=== PATIENT | male | born 1965 | race African-American/Black ===

== ENCOUNTER 2017-09-26 09:35 | Outpatient (CLI) | payer MEDICARE, MEDICAID ==
--- NOTE | 2017-09-26 11:43 | ULT ---
BILATERAL INGUINAL ULTRASOUND: Date: 09-26-17 Comparison: None. History: Right groin pain. Technique: Multiplanar grayscale sonographic imaging of bilateral inguinal regions obtained. FINDINGS: There are multiple mildly prominent non-enlarged nodes identified in the inguinal regions bilaterally . No sonographic evidence of mass or fluid collection or hernia formation noted in the inguinal regio ns. If symptoms persist, CT advised. IMPRESSION: Mild ravinder prominence in bilateral inguinal regions. No acute findings. Please see above discussion. POS: [facility]
== END 2017-09-26 09:36 | disposition home or self-care (01) ==
LOC: ULT 09:35
PROVIDERS: ATTEND Nurse Practitioner Family
DX: R10.31 Right lower quadrant pain (principal)
CPT/HCPCS: 76999

== ENCOUNTER 2018-05-08 12:09 | Outpatient (CLI) | payer MEDICARE, MEDICAID ==
[~2018-05-08 12:09] MED LIST: Iopamidol 370 76% 100 ML VIAL ONE
--- NOTE | 2018-05-08 14:06 | CT ---
ABDOMEN CT WITH CONTRAST: PELVIS CT WITH CONTRAST: HISTORY: Loose bowel movements for a month. Weight loss. Abdominal pain. COMPARISON: None. TECHNIQUE: Abdomen and pelvis CT are performed with IV and enteric contrast. Coronal reformatted images are sub mitted for interpretation. FINDINGS: ABDOMEN: The lung bases are clear. The descending thoracic aorta and abdominal aorta have a normal caliber. No periaortic fat stranding. Unremarkable gallbladder. Portal vein is patent. There is enhancement of the hepatic parenchyma, near the hepatic dome, which is incompletely evaluate d. Flash filling hemangioma, measuring 2 cm, is favored. The remainder of the hepatic parenchyma is unremarkable. The spleen and adrenal glands are unremarkable. There is mild prominence of the panc reatic duct, at the head and proximal to mid portion of the pancreatic body. The duct measures appro ximately 3 mm and is at upper limits of normal. Symmetric enhancement of the kidneys. There is a partially hyperdense lesion emanating from the uppe r pole of the right kidney, measuring 2.2 x 2.5 cm. Intrinsic hyperdensity versus enhancement are di fferential consolidations. The possibility of a right renal neoplasm cannot be excluded. Bilaterall y, no obstructive uropathy. No gastrohepatic, retrocrural, or periportal lymphadenopathy. No mesenteric mass, lymphadenopathy, free air, or free fluid. The gastric mucosa, the duodenum, and multiple normal caliber small bowel loops are noted. The ileoc ecal junction is normal. Normal caliber appendix. Scattered fecal material in a nondistended, nondi lated colon. Occasional diverticulum. No diverticulitis. PELVIS: No mass, lymphadenopathy, free air, or free fluid. No lytic or blastic lesions in the osseo us structures. IMPRESSION: 1. No acute abnormality of the abdomen and pelvis. 2. Complex lesion emanating from the upper pole of the right kidney with hyperdensity, which may rep resent areas of enhancement. Pre and post contrast abdomen MRI is recommended for better characteriz ation to confirm suspected neoplasm. The results of the study were discussed with Dr. Stoddard on 05/08/2018 at 1:59 p.m. CODE CR POS: [facility]
[2018-05-08 14:16] LABS: Bilirubin Negative (Negative); Blood, Urine Negative (Negative); Clarity CLEAR (Clear); Glucose, Urine (Dipstick) Negative (Negative); Hemoglobin 13.2 g/dL (14.0-18.0); Leukocyte Negative (Negative); Mean Corpuscular HGB CONC 34.2 g/dL (32.0-36.0); Mean Corpuscular Hemoglobin 30.1 pg (27.0-31.0); Mean Corpuscular Volume 87.9 fL (78.0-98.0); Mean Platelet Volume 7.9 fL (7.4-10.4); Nitrite Negative (Negative); Platelet Count 253 thou/uL (130-400); Protein, Urine (Dipstick) Negative (Neg-Trace); RBC Distribution Width 12.7 % (11.5-14.5); Red Blood Cell (RBC) Count 4.37 mill/uL (4.70-6.10); Specific Gravity, Urine 1.043 (1.002-1.036); White Blood Cell (WBC) Count 5.1 thou/uL (4.8-10.8)
[2018-05-08 14:18] LABS: Bacteria/HPF None Seen HPF (None Seen); Hyaline Casts/LPF 0-3 HYALINE CAST LPF (0-3 Hyaline); RBC/HPF None Seen HPF (0-3); Squamous Epithelial None Seen HPF (0-3); WBC/HPF None Seen HPF (0-3)
[2018-05-08 14:28] LABS: ALT (SGPT) 11 U/L (8-55); AST (SGOT) 15 U/L (5-34); Albumin 4.1 g/dL (3.5-5.0); Alkaline Phosphatase 85 U/L (40-150); Anion Gap 11 mmol/L (10-20); BUN (Urea Nitrogen) 11 mg/dL (8.4-25.7); Bilirubin, Total 0.6 mg/dL (0.2-1.2); Calc. Creatinine Clearance 0 mL/min (70-130); Calcium 8.7 mg/dL (7.8-10.44); Carbon Dioxide 23 mmol/L (22-29); Chloride 106 mmol/L (98-107); Estimated GFR-MDRD Greater than 90; Globulin 2.9 g/dL (2.4-3.5); Glucose 77 mg/dL (70-105); Potassium 4.1 mmol/L (3.5-5.1); Sodium 136 mmol/L (136-145)
[2018-05-08 14:36] LABS: Eosinophils 1 % (0-10); Lymphocytes 32 % (21-51); MDiff Complete? YES; Monocytes 7 % (0-10); Neutrophil 60 % (42-75); PLT Morphology Comment Appears Adequate; Target Cells SLIGHT = 2-5 cells (100X) (0-1/hpf)
== END 2018-05-08 12:10 | disposition home or self-care (01) ==
LOC: CT 12:09
PROVIDERS: ATTEND Internal Medicine Infectious Disease
DX: R10.9 Unspecified abdominal pain (principal); N28.9 Disorder of kidney and ureter, unspecified
CPT/HCPCS: 36415; 74177; 80053; 81001; 85025; 87086

== ENCOUNTER 2018-05-19 08:52 | Outpatient (CLI) | payer MEDICARE, MEDICAID ==
[2018-05-19] MEDS ORDERED: Gadobenate Dimeglumine 529 MG/1 ML (20ML VIAL) ONE (12:30)
--- NOTE | 2018-05-19 13:43 | MRI ---
MRI ABDOMEN WITH AND WITHOUT IV CONTRAST: History: Right renal mass. FINDINGS: Correlation is made with the CT scan of 05-08-18. The liver, spleen, pancreas, adrenal glands, and left kidney appear normal. The 2.5 cm right renal ma ss seen on the CT scan has a complex appearance with some areas of post contrast enhancement. No free fluid or lymphadenopathy is seen. There is no evidence of aneurysmal dilatation of the abdomi nal aorta. Bone marrow signal is normal. IMPRESSION: 2.5 cm right renal mass, suspicious for malignancy. POS: [facility]
== END 2018-05-19 08:53 | disposition home or self-care (01) ==
LOC: BICMRI 08:52
PROVIDERS: ATTEND Internal Medicine Infectious Disease
DX: N28.89 Other specified disorders of kidney and ureter (principal)
CPT/HCPCS: 74183; A9579

== ENCOUNTER 2018-09-04 09:22 | Outpatient (CLI) | payer MEDICARE, MEDICAID ==
--- NOTE | 2018-09-04 13:23 | CT ---
EXAM: CT abdomen with and without contrast HISTORY: Renal mass COMPARISON: MRI 05/19/18 FINDINGS: Lung bases are clear. No pericardial effusion. On the noncontrast examination, there is no nephroureterolithiasis or hydroureteral nephrosis. No se condary evidence of a recently passed stone. There is a mass of the anterior cortex interpolar right kidney measuring up to 2.6 cm, similar to the comparison examination. 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 The upper pole moiety does not have contrast within th e proximal ureter by the 4 minute delayed examination. No other enhancing mass is appreciated. No periaortic retroperitoneal adenopathy. No suspicious osteolytic or osteoblastic lesions. The right renal vein is patent. Mild thickening of the left adrenal gland is similar. The aortic contour is nonaneurysmal. Intramedullary lucency of the left iliac wing is similar to the comparison examination, peripheral scar-like rafael, likely a focal bone cyst. IMPRESSION: 1. Unchanged interpolar anterior cortex 50% exophytic right renal mass suggestive of renal cell carc inoma. There has been interval growth compared to the MRI dating back to 2013. The right renal vein is patent. No periaortic retroperitoneal adenopathy. 2. 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 POS: [facility]
== END 2018-09-04 09:23 | disposition home or self-care (01) ==
LOC: SCSCT 09:22
PROVIDERS: ATTEND Urology
DX: N29 Other disorders of kidney and ureter in diseases classified elsewhere (principal)
CPT/HCPCS: 74170

== ENCOUNTER 2018-12-14 20:08 | Emergency (ER) | payer MEDICARE, MEDICAID ==
[~2018-12-14 20:08] MED LIST changes: +ISOVUE-370 76%-LOCM 1 ML ONE; -Iopamidol 370 76% 100 ML VIAL ONE
[2018-12-14] MEDS ORDERED: Fentanyl 100 MCG/2 ML VIAL ONE (20:30)
[2018-12-14 20:32] LABS: #Basophils 0.1 thou/uL (0.0-0.2); #Lymphocytes 4.7 thou/uL (1.20-3.40); #Monocytes 0.6 thou/uL (0.11-0.59); %Basophils 1.2 % (0.0-1.0); %Eosinophils 0.5 % (0.0-10.0); %Lymphocytes 49.8 % (21.0-51.0); %Monocytes 6.2 % (0.0-10.0); %Neutrophils 42.3 % (42.0-75.0); Mean Corpuscular HGB CONC 35.2 g/dL (32.0-36.0); Mean Corpuscular Hemoglobin 30.1 pg (27.0-31.0); Mean Corpuscular Volume 85.5 fL (78.0-98.0); Mean Platelet Volume 8.1 fL (7.4-10.4); Platelet Count 231 thou/uL (130-400); Red Blood Cell (RBC) Count 4.34 mill/uL (4.70-6.10); White Blood Cell (WBC) Count 9.4 thou/uL (4.8-10.8)
--- NOTE | 2018-12-14 20:48 | RAD ---
AP VIEW CHEST: 12/14/18 HISTORY: Chest pain. AP view chest is obtained on 12/14/18. The lungs are well aerated. No evidence of active intrathoracic disease seen. No evidence of effusion s, pneumonia, or pneumothorax seen. Multiple calcified hilar lymph nodes seen. IMPRESSION: No evidence of acute intrathoracic abnormality seen. POS: [facility]
[2018-12-14 20:56] LABS: ALT (SGPT) 11 U/L (8-55); AST (SGOT) 15 U/L (5-34); Albumin 4.2 g/dL (3.5-5.0); Alkaline Phosphatase 90 U/L (40-150); Anion Gap 13 mmol/L (10-20); BUN (Urea Nitrogen) 14 mg/dL (8.4-25.7); Bilirubin, Total 0.4 mg/dL (0.2-1.2); CK (CPK) 189 U/L (30-200); Calc. Creatinine Clearance 0 mL/min (70-130); Calcium 9.1 mg/dL (7.8-10.44); Carbon Dioxide 22 mmol/L (22-29); Chloride 102 mmol/L (98-107); Estimated GFR-MDRD 83; Globulin 2.9 g/dL (2.4-3.5); Glucose 89 mg/dL (70-105); Potassium 3.7 mmol/L (3.5-5.1); Protein, Total 7.1 g/dL (6.0-8.3); Sodium 133 mmol/L (136-145)
[2018-12-14 21:37] LABS: Bilirubin Negative (Negative); Blood, Urine Negative (Negative); Clarity CLEAR (Clear); Glucose, Urine (Dipstick) Negative (Negative); Leukocyte Negative (Negative); Nitrite Negative (Negative); Protein, Urine (Dipstick) Negative (Neg-Trace); Specific Gravity, Urine 1.039 (1.002-1.036)
[2018-12-14] MEDS ORDERED: Aspirin Chewable 81 MG TAB ONE (21:38)
[2018-12-14] MEDS ORDERED: Metoclopramide HCl 10 MG/2 ML VIAL ONE (21:42)
[2018-12-14] MEDS ORDERED: diphenhydrAMINE 50 MG/ML VIAL ONE (21:42)
--- NOTE | 2018-12-14 21:58 | CT ---
CONTRAST ENHANCED CTA AORTA 12/14/18 HISTORY: Back pain radiating to right. Contrast enhanced CTA chest and abdomen performed. 2D and 3D reconstructed images performed on an [id number] 3D workstation. CTA images demonstrate the aortic arch and descending aorta to be unremarkable. The abdominal aorta is unremarkable. Mild areas of atherosclerotic plaque seen. No evidence of aortic dissection seen. AP window and bilateral hilar areas of lymph node calcification seen. Coronary artery calcification seen in the LAD. No definite evidence of lung parenchymal lesions seen . The liver, spleen, gallbladder, and pancreas are unremarkable. No evidence of abdominal aortic aneury sm seen. Cortical cyst seen in the mid pole of the right kidney. IMPRESSION: 1. No evidence of aortic aneurysms or dissections. 2. Coronary artery calcifications. 3. Small umbilical hernia. POS: [facility]
[2018-12-14] MEDS ORDERED: Acetaminophen 500 MG TAB ONE (23:26)
== END 2018-12-14 23:37 | disposition home or self-care (01) ==
LOC: ERS 20:08
DX: S39.012A Strain of muscle, fascia and tendon of lower back, initial encounter (principal); B20 Human immunodeficiency virus [HIV] disease; I10 Essential (primary) hypertension; F17.210 Nicotine dependence, cigarettes, uncomplicated; X58.XXXA Exposure to other specified factors, initial encounter
CPT/HCPCS: 36415; 71045; 71275; 80053; 81003; 82550; 83605; 83690; 84484; 85025; 86850; 86900; 86901; 93005; 94760; 96365; 96366; 96375; J1200; J2765; J3010; Q9966

== ENCOUNTER 2019-06-02 08:36 | Outpatient (CLI) | payer MEDICARE, MEDICAID ==
--- NOTE | 2019-06-02 09:47 | CT ---
Exam: Abdomen CT with and without contrast HISTORY: Follow-up right renal mass. COMPARISON: 09/04/2018 TECHNIQUE: Abdomen and pelvic CT is performed with and without contrast following urogram protocol. C oronal reformatted images are submitted for interpretation FINDINGS: Lung bases: Multiple scar/atelectasis Liver: Appropriate enhancement. No enhancing masses. Spleen: Appropriate enhancement Pancreas: Appropriate enhancement Adrenal glands: Symmetric enhancement Lymph nodes: No gastrohepatic, retrocrural or periportal lymphadenopathy Portal vein: Grossly patent Gallbladder: Unremarkable Kidneys: Bilaterally no hydronephrosis, nephrolithiasis or perinephric fat stranding. Visualized uret ers are unremarkable. Redemonstration of a exophytic lesion emanating from the mid right renal cortex noncontrast attenuation coefficient of 31 Hounsfield units, arterial phase attenuation coeffic ient 67 Hounsfield units, delayed imaging demonstrates a attenuation coefficient of 52 Hounsfield units. Currently, the mass measures 1.6 x 2.3 cm. Previously, the mass measured 1.9 x 2.3 cm. 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 Right renal vein is patent. Mesentery: No mass, nephropathy, free air or free fluid Retroperitoneum: No significant retroperitoneal mass or lymphadenopathy. Alimentary canal: Limited evaluation due to lack of oral contrast administration. No evidence of isma l obstruction. The ileocecal junction is normal. Normal caliber appendix. Scattered fecal material in a nondistended/nondilated colon. No lytic or blastic lesions in the osseous structures IMPRESSION: 1. Redemonstration of an enhancing mass in the right renal cortex which has an enhancement pattern naidu ggesting a renal cell carcinoma. No significant interval change. 2. 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 Persistent lack of contrast opacification in the upper pole moiety and visualized right ureter.
[2019-06-02] MEDS ORDERED: Iopamidol 370 76% 100 ML VIAL ONE (10:01)
== END 2019-06-02 08:37 | disposition home or self-care (01) ==
LOC: CT 08:36
PROVIDERS: ATTEND Urology
DX: N28.89 Other specified disorders of kidney and ureter (principal); Q62.8 Other congenital malformations of ureter
CPT/HCPCS: 74170; Q9967

== ENCOUNTER 2019-07-01 13:24 | Outpatient (CLI) | payer MEDICARE, OTHER ==
--- NOTE | 2019-07-01 13:39 | RAD ---
EXAM: Chest 2 views: HISTORY: Cough COMPARISON: 12/14/2018 FINDINGS: Stable old granulomatous disease. Heart size:Within normal limits. Lungs:Clear of acute process. Atherosclerotic changes of the aorta. No confluent pneumonia, overt edema, pleural effusion, pneumothorax, or other significant acute proce ss. IMPRESSION: Atherosclerosis of the aorta. No acute intrathoracic disease.
== END 2019-07-01 13:25 | disposition home or self-care (01) ==
LOC: BICRAD 13:24
PROVIDERS: ATTEND Family Medicine
DX: R05 Cough (principal); I70.0 Atherosclerosis of aorta
CPT/HCPCS: 71046

== ENCOUNTER 2019-07-26 21:24 | Emergency (ER) | payer MEDICARE, MEDICAID ==
--- NOTE | 2019-07-26 22:13 | RAD ---
RADIOGRAPH CHEST 2 VIEWS: DATE: 07/26/2019 HISTORY: 54-year-old male with cough and fever FINDINGS: There is no airspace density, pulmonary edema, pleural effusion, pneumothorax, or cardiomegaly. IMPRESSION: No acute cardiopulmonary findings.
[2019-07-26] MEDS ORDERED: Acetaminophen 500 MG TAB ONE (22:47)
== END 2019-07-26 22:50 | disposition home or self-care (01) ==
LOC: ERS 21:24
DX: J20.9 Acute bronchitis, unspecified (principal); B20 Human immunodeficiency virus [HIV] disease; I10 Essential (primary) hypertension; F17.290 Nicotine dependence, other tobacco product, uncomplicated
CPT/HCPCS: 71046; 87804

== ENCOUNTER 2019-11-19 08:41 | Outpatient (CLI) | payer MEDICARE, MEDICAID ==
--- NOTE | 2019-11-19 10:47 | CT ---
CT ABDOMEN WITH AND WITHOUT CONTRAST: Axial tomograms were obtained pre- and post-IV contrast. Postcontrast images were obtained with port al venous and delayed venous phase. Renal mass protocol was followed. INDICATION: Followup right renal mass. COMPARISON: Comparison is made to abdominal CT 06/02/2019. FINDINGS: The 2 cm mass involving the mid right kidney is again noted. This mass does show enhancement charact eristics. It is isodense on noncontrast images with density at 38 Hounsfield units. Postcontrast de nsity recorded at 56 and 68 on portal venous and delayed venous phases. The size and appearance of t his mass has not changed when compared to 06/02/2019. Lung bases remain clear. Tiny nodule in the anterior right middle lobe measuring in the 3 mm range i s stable. Liver, spleen, and pancreas unremarkable. Left adrenal gland is mildly prominent, especially the medial limb, suggesting mild hyperplasia. Thi s is a stable finding. A double collecting system on the right is again noted with opacification of both collecting systems on the delayed sequence. Both ureters are opacified and are seen extending to the pelvis. Images of the pelvis were not obtained on this study and lower ureters are not evaluated. The left kidney is unremarkable. Aorta shows atherosclerotic change. Visualized bowel loops unremarkable. Osseous structures are unr emarkable. IMPRESSION: 1. The enhancing mass in the mid pole right kidney is unchanged in size and appearance when compared to 06/02/2019. 2. Right double collecting system again noted without hydronephrosis or obstruction. 3. Prominence of the medial limb of the left adrenal gland could represent small adenoma or mild hyp erplasia. This is a stable finding. POS: [facility]
[2019-11-19] MEDS ORDERED: Iopamidol-370 76% 500 ML 1 ML ONE (13:39)
== END 2019-11-19 08:42 | disposition home or self-care (01) ==
LOC: BICCT 08:41
PROVIDERS: ATTEND Urology
DX: N28.89 Other specified disorders of kidney and ureter (principal); Q62.8 Other congenital malformations of ureter
CPT/HCPCS: 74170; Q9967

== ENCOUNTER 2023-03-25 08:14 | Emergency (ER) | payer OTHER, MEDICARE, MEDICAID ==
[2023-03-25] MEDS ORDERED: Ketorolac Tromethamine 30 MG/ML VIAL ONE (09:10)
== END 2023-03-25 10:30 | disposition home or self-care (01) ==
LOC: ERS 08:14
DX: S16.1XXA Strain of muscle, fascia and tendon at neck level, initial encounter (principal); S39.012A Strain of muscle, fascia and tendon of lower back, initial encounter; S80.812A Abrasion, left lower leg, initial encounter; F17.290 Nicotine dependence, other tobacco product, uncomplicated; V89.2XXA Person injured in unspecified motor-vehicle accident, traffic, initial encounter
CPT/HCPCS: 72072; 72100; 72125; 96372; J1885

== ENCOUNTER 2023-04-13 12:43 | Inpatient (IN) | payer OTHER, MEDICARE ==
[2023-04-13] MEDS ORDERED: Ondansetron PF 4 MG/2 ML Vial ONE (13:42)
[2023-04-13] MEDS ORDERED: Morphine 4 MG/ML VIAL ONE ×2 (13:42→17:05)
[2023-04-13] MEDS ORDERED: Vancomycin 1.5 GRAM/300 ML BAG 1.5 GM in Premix Bag 1 BAG IVPB SCH (14:00)
[2023-04-13] MEDS ORDERED: Piperacillin/Tazobactam 4.5 GM in Sodium Chloride 0.9% 100 ML IVPB SCH (14:00)
[2023-04-13 14:04] LABS: #Eosinphils 0.1 thou/uL (0.0-0.7); #Monocytes 0.4 thou/uL (0.11-0.59); #Neutrophils 2.2 thou/uL (1.40-6.50); %Basophils 0.6 % (0.0-1.0); %Eosinophils 2.4 % (0.0-10.0); %Lymphocytes 50.1 % (21.0-51.0); %Neutrophils 39.7 % (42.0-75.0); Hematocrit 37.4 % (42.0-52.0); Hemoglobin 13.1 g/dL (14.0-18.0); Mean Corpuscular Hemoglobin 29.4 pg (27.0-31.0); Mean Corpuscular Volume 83.9 fl (78.0-98.0); Mean Platelet Volume 10.2 fL (7.4-10.4); Platelet Count 356 10x3/uL (130-400); RBC Distribution Width 12.5 % (11.5-14.5); Red Blood Cell (RBC) Count 4.46 mill/uL (4.70-6.10); White Blood Cell (WBC) Count 5.5 10x3/uL (4.8-10.8)
[2023-04-13] MEDS ORDERED: Piperacillin/Tazobactam 4.5 GM VIAL ONE (14:16)
[2023-04-13 14:30] LABS: ALT (SGPT) 7 U/L (8-55); AST (SGOT) 10 U/L (5-34); Alkaline Phosphatase 81 U/L (40-110); Anion Gap 14 mmol/L (10-20); BUN (Urea Nitrogen) 17 mg/dL (8.4-25.7); Bilirubin, Total 0.4 mg/dL (0.2-1.2); Calc. Creatinine Clearance 0 mL/min (70-130); Calcium 9.8 mg/dL (7.8-10.44); Carbon Dioxide 24 mmol/L (22-29); Chloride 107 mmol/L (98-107); Estimated GFR 100; Globulin 3.4 g/dL (2.4-3.5); Glucose 64 mg/dL (70-105); Potassium 4.1 mmol/L (3.5-5.1); Protein, Total 7.4 g/dL (6.0-8.3); Sodium 141 mmol/L (136-145)
[2023-04-13] MEDS ORDERED: Ondansetron PF 4 MG/2 ML Vial IVP PRN (16:25)
[2023-04-13] MEDS ORDERED: Ondansetron ODT 4 MG TAB PO PRN (16:25)
[2023-04-13] MEDS ORDERED: Acetaminophen 325 MG TAB PO PRN (16:25)
[2023-04-13] MEDS: Piperacillin/Tazobactam 3.375 GM in Sodium Chloride 0.9% 100 ML IVPB SCH (18:23)
[2023-04-13 19:43] VITALS: BMI 23.6
[2023-04-13] MEDS: Famotidine 20 MG TAB PO SCH (20:14)
[2023-04-13] MEDS: Morphine 4 MG/ML VIAL SLOW IVP PRN (21:18)
[2023-04-13] MEDS ORDERED: diphenhydrAMINE 25 MG CAP PO SCH (23:30)
[2023-04-14] MEDS: Piperacillin/Tazobactam 3.375 GM in Sodium Chloride 0.9% 100 ML IVPB SCH ×3 (01:38→18:29)
[2023-04-14] MEDS: Vancomycin 1 GM in Premix Bag 1 BAG IVPB SCH ×2 (03:25→14:31)
[2023-04-14] MEDS: Morphine 4 MG/ML VIAL SLOW IVP PRN ×4 (03:42→23:41)
[2023-04-14 04:23] LABS: Bacteria/HPF None Seen HPF (None Seen); Bilirubin Negative (Negative); Blood, Urine Negative (Negative); Clarity Clear (Clear); Glucose, Urine (Dipstick) Normal (Negative); Ketone, Urine Negative (Negative); Leukocyte Negative Leu/uL (Negative); Nitrite Negative (Negative); Protein, Urine (Dipstick) Negative (Neg-Trace); RBC/HPF 0-3 HPF (0-3); Specific Gravity, Urine 1.023 (1.002-1.036); Squamous Epithelial 0-3 HPF (0-3); Urobilinogen Normal mg/dL (Less than 2); WBC/HPF 0-3 HPF (0-3)
[2023-04-14] MEDS: HYDROcodone/Acetaminophen 5/325 mg Tablet PO PRN ×4 (05:06→20:57)
[2023-04-14 08:17] LABS: #Eosinphils 0.2 thou/uL (0.0-0.7); #Monocytes 0.4 thou/uL (0.11-0.59); #Neutrophils 1.5 thou/uL (1.40-6.50); %Basophils 0.6 % (0.0-1.0); %Eosinophils 3.5 % (0.0-10.0); %Lymphocytes 58.1 % (21.0-51.0); %Monocytes 7.4 % (0.0-10.0); Hematocrit 31.7 % (42.0-52.0); Hemoglobin 10.9 g/dL (14.0-18.0); Mean Corpuscular HGB CONC 34.4 g/dL (32.0-36.0); Mean Corpuscular Hemoglobin 29.1 pg (27.0-31.0); Mean Corpuscular Volume 84.8 fl (78.0-98.0); Mean Platelet Volume 9.9 fL (7.4-10.4); Platelet Count 304 10x3/uL (130-400); RBC Distribution Width 12.6 % (11.5-14.5); Red Blood Cell (RBC) Count 3.74 mill/uL (4.70-6.10); White Blood Cell (WBC) Count 4.8 10x3/uL (4.8-10.8)
[2023-04-14 08:29] LABS: Anion Gap 5 mmol/L (10-20); BUN (Urea Nitrogen) 11 mg/dL (8.4-25.7); Calc. Creatinine Clearance 104 mL/min (70-130); Calcium 8.5 mg/dL (7.8-10.44); Carbon Dioxide 23 mmol/L (22-29); Chloride 109 mmol/L (98-107); Estimated GFR 102; Glucose 80 mg/dL (70-105); Sodium 133 mmol/L (136-145)
[2023-04-14] MEDS ORDERED: Darunavir/Cobicistat [Prezcobix 800 Mg-150 Mg Tablet] PO SCH (09:00)
[2023-04-14] MEDS: Famotidine 20 MG TAB PO SCH ×2 (09:44→20:57)
[2023-04-14] MEDS ORDERED: Ketamine 50 MG/ML (10ML VIAL) ONE (11:02)
[2023-04-14] MEDS ORDERED: Midazolam HCl 2 mg/2 ml Vial ONE (11:02)
[2023-04-14] MEDS ORDERED: Lidocaine 1% (PF) 30 ML VIAL ONE (11:03)
[2023-04-14] MEDS ORDERED: Magnevist 469MG/ML 20 ML VIAL ONE (12:16)
[2023-04-14] MEDS ORDERED: Vancomycin 1 GM in Premix Bag 1 BAG IVPB SCH (14:00)
[2023-04-15] MEDS: HYDROcodone/Acetaminophen 5/325 mg Tablet PO PRN ×5 (02:36→21:01)
[2023-04-15] MEDS: Piperacillin/Tazobactam 3.375 GM in Sodium Chloride 0.9% 100 ML IVPB SCH ×3 (02:36→18:15)
[2023-04-15 02:58] LABS: Vancomycin, Trough 6.7 ug/mL
[2023-04-15] MEDS: Vancomycin 1 GM in Premix Bag 1 BAG IVPB SCH ×4 (03:17→21:03)
[2023-04-15] MEDS: Morphine 4 MG/ML VIAL SLOW IVP PRN ×5 (05:05→23:45)
[2023-04-15 07:41] LABS: #Eosinphils 0.2 thou/uL (0.0-0.7); #Monocytes 0.6 thou/uL (0.11-0.59); #Neutrophils 4.6 thou/uL (1.40-6.50); %Basophils 0.4 % (0.0-1.0); %Eosinophils 2.4 % (0.0-10.0); %Lymphocytes 29.6 % (21.0-51.0); %Monocytes 7.4 % (0.0-10.0); %Neutrophils 59.9 % (42.0-75.0); Hematocrit 29.5 % (42.0-52.0); Hemoglobin 10.6 g/dL (14.0-18.0); Mean Corpuscular HGB CONC 35.9 g/dL (32.0-36.0); Mean Corpuscular Hemoglobin 29.7 pg (27.0-31.0); Mean Corpuscular Volume 82.6 fl (78.0-98.0); Mean Platelet Volume 10.1 fL (7.4-10.4); Platelet Count 273 10x3/uL (130-400); RBC Distribution Width 12.3 % (11.5-14.5); Red Blood Cell (RBC) Count 3.57 mill/uL (4.70-6.10); White Blood Cell (WBC) Count 7.6 10x3/uL (4.8-10.8)
[2023-04-15] MEDS: Famotidine 20 MG TAB PO SCH ×2 (07:45→21:01)
[2023-04-15 08:02] LABS: Anion Gap 5 mmol/L (10-20); BUN (Urea Nitrogen) 11 mg/dL (8.4-25.7); Calc. Creatinine Clearance 97 mL/min (70-130); Calcium 8.3 mg/dL (7.8-10.44); Carbon Dioxide 22 mmol/L (22-29); Chloride 109 mmol/L (98-107); Estimated GFR 100; Glucose 100 mg/dL (70-105); Potassium 3.8 mmol/L (3.5-5.1); Sodium 132 mmol/L (136-145)
[2023-04-15] MEDS: Darunavir/Cobicistat [Prezcobix 800 Mg-150 Mg Tablet] PO SCH (18:14)
[2023-04-15] MEDS: Senokot S 8.6-50 MG TAB PO PRN (18:18)
[2023-04-16] MEDS: HYDROcodone/Acetaminophen 5/325 mg Tablet PO PRN ×4 (02:35→22:27)
[2023-04-16] MEDS: Piperacillin/Tazobactam 3.375 GM in Sodium Chloride 0.9% 100 ML IVPB SCH ×2 (02:36→09:51)
[2023-04-16 05:02] LABS: #Basophils 0.1 thou/uL (0.0-0.2); #Eosinphils 0.2 thou/uL (0.0-0.7); #Monocytes 0.6 thou/uL (0.11-0.59); #Neutrophils 2.9 thou/uL (1.40-6.50); %Basophils 0.8 % (0.0-1.0); %Eosinophils 3.2 % (0.0-10.0); %Lymphocytes 41.4 % (21.0-51.0); %Monocytes 8.8 % (0.0-10.0); %Neutrophils 45.6 % (42.0-75.0); Hemoglobin 10.6 g/dL (14.0-18.0); Mean Corpuscular HGB CONC 35.3 g/dL (32.0-36.0); Mean Corpuscular Hemoglobin 29.7 pg (27.0-31.0); Platelet Count 271 10x3/uL (130-400); RBC Distribution Width 12.2 % (11.5-14.5); Red Blood Cell (RBC) Count 3.57 mill/uL (4.70-6.10); White Blood Cell (WBC) Count 6.3 10x3/uL (4.8-10.8)
[2023-04-16 05:39] LABS: Anion Gap 12 mmol/L (10-20); BUN (Urea Nitrogen) 15 mg/dL (8.4-25.7); Calc. Creatinine Clearance 96 mL/min (70-130); Calcium 8.5 mg/dL (7.8-10.44); Carbon Dioxide 23 mmol/L (22-29); Chloride 104 mmol/L (98-107); Estimated GFR 99; Glucose 88 mg/dL (70-105); Potassium 4.3 mmol/L (3.5-5.1); Sodium 135 mmol/L (136-145)
[2023-04-16 05:40] LABS: Vancomycin, Trough 17.3 ug/mL
[2023-04-16] MEDS: Morphine 4 MG/ML VIAL SLOW IVP PRN ×4 (06:01→20:24)
[2023-04-16] MEDS: Vancomycin 1 GM in Premix Bag 1 BAG IVPB SCH ×3 (06:03→20:24)
[2023-04-16] MEDS: Famotidine 20 MG TAB PO SCH ×2 (08:13→20:28)
[2023-04-16] MEDS ORDERED: fentaNYL PF 100 MCG/2 ML SYRINGE ONE (13:35)
[2023-04-16] MEDS ORDERED: Vancomycin 1 GM/200 ML (FROZEN) BAG ONE (13:41)
[2023-04-16] MEDS ORDERED: PROPOFOL 200 MG/20 ML VIAL ONE (14:08)
[2023-04-16] MEDS ORDERED: Lidocaine 1% PF 5 ML VIAL ONE (14:08)
[2023-04-16] MEDS ORDERED: fentaNYL 50 mcg/mL 1 mL Vial ONE ×2 (14:52→15:33)
[2023-04-16] MEDS ORDERED: HYDROmorphone 0.5 MG/0.5 ML SYRINGE ONE ×2 (15:03→15:15)
[2023-04-16] MEDS ORDERED: Ketorolac Tromethamine 30 MG/ML VIAL ONE (15:15)
[2023-04-16] MEDS: Darunavir/Cobicistat [Prezcobix 800 Mg-150 Mg Tablet] PO SCH (17:32)
[2023-04-16] MEDS ORDERED: Piperacillin/Tazobactam 3.375 GM in Sodium Chloride 0.9% 100 ML IVPB SCH (18:00)
[2023-04-16] MEDS: Senokot S 8.6-50 MG TAB PO PRN (20:30)
[2023-04-17] MEDS: Piperacillin/Tazobactam 3.375 GM in Sodium Chloride 0.9% 100 ML IVPB SCH ×3 (00:02→16:34)
[2023-04-17] MEDS: Morphine 4 MG/ML VIAL SLOW IVP PRN ×6 (00:12→20:56)
[2023-04-17] MEDS: HYDROcodone/Acetaminophen 5/325 mg Tablet PO PRN ×2 (02:30→06:15)
[2023-04-17] MEDS: Vancomycin 1 GM in Premix Bag 1 BAG IVPB SCH ×3 (03:54→21:38)
[2023-04-17] MEDS: Famotidine 20 MG TAB PO SCH ×2 (08:06→20:55)
[2023-04-17 08:42] LABS: #Eosinphils 0.1 thou/uL (0.0-0.7); #Monocytes 0.5 thou/uL (0.11-0.59); %Basophils 0.3 % (0.0-1.0); %Eosinophils 1.5 % (0.0-10.0); %Lymphocytes 21.9 % (21.0-51.0); %Neutrophils 69.2 % (42.0-75.0); Hematocrit 29.3 % (42.0-52.0); Hemoglobin 10.6 g/dL (14.0-18.0); Mean Corpuscular HGB CONC 36.2 g/dL (32.0-36.0); Mean Corpuscular Hemoglobin 29.8 pg (27.0-31.0); Mean Corpuscular Volume 82.3 fl (78.0-98.0); Mean Platelet Volume 9.8 fL (7.4-10.4); Platelet Count 274 10x3/uL (130-400); RBC Distribution Width 12.2 % (11.5-14.5); Red Blood Cell (RBC) Count 3.56 mill/uL (4.70-6.10); White Blood Cell (WBC) Count 7.3 10x3/uL (4.8-10.8)
[2023-04-17 09:04] LABS: Anion Gap 12 mmol/L (10-20); BUN (Urea Nitrogen) 13 mg/dL (8.4-25.7); Calc. Creatinine Clearance 80 mL/min (70-130); Calcium 8.5 mg/dL (7.8-10.44); Carbon Dioxide 22 mmol/L (22-29); Chloride 103 mmol/L (98-107); Estimated GFR 80; Glucose 143 mg/dL (70-105); Sodium 133 mmol/L (136-145)
[2023-04-17] MEDS ORDERED: HYDROcodone/Acetaminophen 5/325 mg Tablet PO PRN (09:22)
[2023-04-17] MEDS: HYDROcodone/Acetaminophen 10/325 mg Tablet PO PRN ×4 (11:10→23:01)
[2023-04-17] MEDS: Senokot S 8.6-50 MG TAB PO PRN (12:43)
[2023-04-17] MEDS: Darunavir/Cobicistat [Prezcobix 800 Mg-150 Mg Tablet] PO SCH (18:19)
[2023-04-17 19:44] LABS: Vancomycin, Trough 23.1 ug/mL
[2023-04-17] MEDS: VANCOMYCIN 1.25 GM/250 ML BAG 1.25 GM in Premix Bag 1 BAG IVPB SCH (23:04)
[2023-04-18] MEDS: Piperacillin/Tazobactam 3.375 GM in Sodium Chloride 0.9% 100 ML IVPB SCH ×2 (01:05→09:18)
[2023-04-18] MEDS: Morphine 4 MG/ML VIAL SLOW IVP PRN ×3 (01:06→10:43)
[2023-04-18] MEDS: HYDROcodone/Acetaminophen 10/325 mg Tablet PO PRN ×3 (04:42→13:27)
[2023-04-18 06:17] LABS: #Eosinphils 0.2 thou/uL (0.0-0.7); #Monocytes 0.7 thou/uL (0.11-0.59); #Neutrophils 3.4 thou/uL (1.40-6.50); %Basophils 0.3 % (0.0-1.0); %Eosinophils 2.8 % (0.0-10.0); %Lymphocytes 28.7 % (21.0-51.0); %Monocytes 11.5 % (0.0-10.0); %Neutrophils 56.5 % (42.0-75.0); Hematocrit 28.6 % (42.0-52.0); Mean Corpuscular Hemoglobin 28.8 pg (27.0-31.0); Mean Corpuscular Volume 82.4 fl (78.0-98.0); Mean Platelet Volume 10.2 fL (7.4-10.4); Platelet Count 270 10x3/uL (130-400); RBC Distribution Width 12.1 % (11.5-14.5); Red Blood Cell (RBC) Count 3.47 mill/uL (4.70-6.10)
[2023-04-18 06:48] LABS: Anion Gap 13 mmol/L (10-20); BUN (Urea Nitrogen) 17 mg/dL (8.4-25.7); Calc. Creatinine Clearance 77 mL/min (70-130); Calcium 8.9 mg/dL (7.8-10.44); Carbon Dioxide 25 mmol/L (22-29); Chloride 105 mmol/L (98-107); Estimated GFR 77; Glucose 90 mg/dL (70-105); Potassium 4.5 mmol/L (3.5-5.1); Sodium 138 mmol/L (136-145)
[2023-04-18] MEDS: Famotidine 20 MG TAB PO SCH (09:18)
[2023-04-18 12:04] VITALS: BP 110/67
[2023-04-18] MEDS: VANCOMYCIN 1.25 GM/250 ML BAG 1.25 GM in Premix Bag 1 BAG IVPB SCH (12:46)
[2023-04-18 14:55] VITALS: TEMP 98.2
== END 2023-04-18 15:00 | disposition home or self-care (01) | DRG 580 ==
LOC: ERS 12:43 → T4-A 16:53
PROVIDERS: ADMIT Hospitalist; ATTEND Internal Medicine Critical Care Medicine
PROC: 0J9P0ZZ Drainage of Left Lower Leg Subcutaneous Tissue and Fascia, Open Approach (ICD-10-PCS; principal; 2023-04-14)
PROC: 0JCP0ZZ Extirpation of Matter from Left Lower Leg Subcutaneous Tissue and Fascia, Open Approach (ICD-10-PCS; 2023-04-18)
DX: S80.12XA Contusion of left lower leg, initial encounter (principal); B20 Human immunodeficiency virus [HIV] disease; Z98.890 Other specified postprocedural states; Z79.899 Other long term (current) drug therapy; I10 Essential (primary) hypertension; V89.2XXA Person injured in unspecified motor-vehicle accident, traffic, initial encounter
CPT/HCPCS: 36415; 36416; 80048; 80053; 80202; 81001; 83605; 85025; 87040; 87070; 87205; 88307; 88311; 96365; 96366; 96367; 96375; 96376; 97139; A9579; J1170; J1885; J2001; J2250; J2270; J2405; J2543; J2704; J3010; J3370; J3370-JW; J3490

== ENCOUNTER 2023-06-14 12:27 | Inpatient (IN) | payer OTHER, MEDICAID ==
[2023-06-14] MEDS ORDERED: Morphine 4 MG/ML VIAL ONE ×2 (13:01→17:20)
[2023-06-14 13:15] LABS: #Eosinphils 0.1 thou/uL (0.0-0.7); #Monocytes 0.3 thou/uL (0.11-0.59); #Neutrophils 2.7 thou/uL (1.40-6.50); %Basophils 0.4 % (0.0-1.0); %Eosinophils 1.1 % (0.0-10.0); %Lymphocytes 40.5 % (21.0-51.0); %Monocytes 6.1 % (0.0-10.0); %Neutrophils 51.7 % (42.0-75.0); Hematocrit 32.9 % (42.0-52.0); Hemoglobin 11.5 g/dL (14.0-18.0); Mean Corpuscular Hemoglobin 28.8 pg (27.0-31.0); Mean Corpuscular Volume 82.5 fl (78.0-98.0); Platelet Count 290 10x3/uL (130-400); RBC Distribution Width 13.3 % (11.5-14.5); Red Blood Cell (RBC) Count 3.99 mill/uL (4.70-6.10); White Blood Cell (WBC) Count 5.2 10x3/uL (4.8-10.8)
[2023-06-14 13:39] LABS: ALT (SGPT) 9 U/L (8-55); AST (SGOT) 11 U/L (5-34); Albumin 3.9 g/dL (3.5-5.0); Alkaline Phosphatase 80 U/L (40-110); Anion Gap 11 mmol/L (10-20); BUN (Urea Nitrogen) 14 mg/dL (8.4-25.7); Bilirubin, Total Less than 0.2 mg/dL (0.2-1.2); Calc. Creatinine Clearance 0 mL/min (70-130); Calcium 8.3 mg/dL (7.8-10.44); Carbon Dioxide 23 mmol/L (22-29); Chloride 110 mmol/L (98-107); Estimated GFR 102; Globulin 2.4 g/dL (2.4-3.5); Glucose 90 mg/dL (70-105); Magnesium 1.9 mg/dL (1.6-2.6); Potassium 4.4 mmol/L (3.5-5.1); Protein, Total 6.3 g/dL (6.0-8.3); Sodium 140 mmol/L (136-145)
[2023-06-14 13:42] LABS: Troponin I Less than 0.010 ng/mL (< 0.028)
[2023-06-14] MEDS: hydrALAZINE 20 MG/ML VIAL SLOW IVP PRN (19:59)
[2023-06-14] MEDS: HYDROcodone/Acetaminophen 5/325 mg Tablet PO PRN (20:00)
[2023-06-14] MEDS ORDERED: diphenhydrAMINE 25 MG CAP PO SCH (21:45)
[2023-06-15] MEDS: HYDROcodone/Acetaminophen 5/325 mg Tablet PO PRN ×4 (01:17→20:23)
[2023-06-15 03:53] LABS: #Eosinphils 0.1 thou/uL (0.0-0.7); #Monocytes 0.4 thou/uL (0.11-0.59); %Basophils 0.6 % (0.0-1.0); %Lymphocytes 50.8 % (21.0-51.0); %Monocytes 7.3 % (0.0-10.0); %Neutrophils 40.1 % (42.0-75.0); Hematocrit 33.8 % (42.0-52.0); Hemoglobin 11.6 g/dL (14.0-18.0); Mean Corpuscular HGB CONC 34.3 g/dL (32.0-36.0); Mean Corpuscular Hemoglobin 28.4 pg (27.0-31.0); Mean Corpuscular Volume 82.8 fl (78.0-98.0); Mean Platelet Volume 11.2 fL (7.4-10.4); Platelet Count 273 10x3/uL (130-400); RBC Distribution Width 13.3 % (11.5-14.5); Red Blood Cell (RBC) Count 4.08 mill/uL (4.70-6.10); White Blood Cell (WBC) Count 5.1 10x3/uL (4.8-10.8)
[2023-06-15 04:24] LABS: Anion Gap 12 mmol/L (10-20); BUN (Urea Nitrogen) 14 mg/dL (8.4-25.7); Calc. Creatinine Clearance 88 mL/min (70-130); Calcium 8.9 mg/dL (7.8-10.44); Carbon Dioxide 23 mmol/L (22-29); Chloride 109 mmol/L (98-107); Estimated GFR 98; Glucose 79 mg/dL (70-105); Potassium 4.4 mmol/L (3.5-5.1); Sodium 140 mmol/L (136-145)
[2023-06-15 05:47] LABS: Amphetamine Not Detected (NotDetected); Barbiturates Screen Not Detected (NotDetected); Benzodiazepine Screen Not Detected (NotDetected); Cocaine Metabolite Screen Detected (NotDetected); Methadone Not Detected (NotDetected); Methamphetamine Not Detected (NotDetected); Opiate Screen Detected (NotDetected); Oxycodone Screen Not Detected (NotDetected); Phencyclidine (PCP) Not Detected (NotDetected); THC/Cannabinoid Screen Detected (NotDetected); Tricyclic Screen Not Detected (NotDetected)
[2023-06-15] MEDS ORDERED: Darunavir/Cobicistat [Prezcobix 800 Mg-150 Mg Tablet] PO SCH (09:00)
[2023-06-15] MEDS ORDERED: FLU VACC QS2023-24(6MOS UP)/PF 60 MCG/0.5 ML SYRINGE IM ONE (09:00)
[2023-06-15 14:32] VITALS: BMI 22.9
[2023-06-15] MEDS: hydrALAZINE 20 MG/ML VIAL SLOW IVP PRN (22:38)
[2023-06-16] MEDS: HYDROcodone/Acetaminophen 5/325 mg Tablet PO PRN ×2 (03:57→09:14)
[2023-06-16 08:19] VITALS: TEMP 98.7
[2023-06-16] MEDS ORDERED: Amlodipine 10 MG TAB PO SCH (09:00)
[2023-06-16] MEDS ORDERED: Regadenoson 0.4 MG/5 ML SYRINGE ONE (09:58)
[2023-06-16 15:44] VITALS: BP 174/96
== END 2023-06-16 17:00 | disposition home or self-care (01) | DRG 310 ==
LOC: ERS 12:27 → IMCU/EMU 16:29
PROVIDERS: ADMIT Internal Medicine; ATTEND Hospitalist
DX: R00.1 Bradycardia, unspecified (principal); S92.402A Displaced unspecified fracture of left great toe, initial encounter for closed fracture; M25.461 Effusion, right knee; Z79.899 Other long term (current) drug therapy; I10 Essential (primary) hypertension; F17.290 Nicotine dependence, other tobacco product, uncomplicated; Z98.890 Other specified postprocedural states; I16.0 Hypertensive urgency; F17.210 Nicotine dependence, cigarettes, uncomplicated; Z21 Asymptomatic human immunodeficiency virus [HIV] infection status; N28.89 Other specified disorders of kidney and ureter; F14.10 Cocaine abuse, uncomplicated; W18.30XA Fall on same level, unspecified, initial encounter
CPT/HCPCS: 36415; 71045; 78452; 80048; 80053; 80306; 83735; 84443; 84484; 85025; 93005; 93017; 93306; 96374; 96376; A9500; J0360; J2270; J2785

== ENCOUNTER 2023-11-01 07:40 | Outpatient (CLI) | payer OTHER, MEDICAID | END 2023-11-01 07:41 | disposition home or self-care (01) | LOC: BICMRI 07:40 | PROVIDERS: ATTEND Orthopaedic Surgery | DX: M23.92 Unspecified internal derangement of left knee (principal); S83.242A Other tear of medial meniscus, current injury, left knee, initial encounter; M67.962 Unspecified disorder of synovium and tendon, left lower leg ==

== ENCOUNTER 2024-07-31 13:00 | Outpatient (CLI) | payer OTHER, MEDICAID | END 2024-07-31 13:01 | disposition home or self-care (01) | LOC: CT 13:00 | PROVIDERS: ATTEND Orthopaedic Surgery | DX: M17.12 Unilateral primary osteoarthritis, left knee (principal) ==

== ENCOUNTER 2024-08-05 09:16 | Outpatient (CLI) | payer OTHER ==
[2024-08-05 11:31] LABS: #Basophils 0.04 10x3/uL (0.0-0.2); %Basophils 0.5 % (0.0-1.0); %Eosinophils 0.7 % (0.0-10.0); %Lymphocytes 30.9 % (21.0-51.0); %Monocytes 8.1 % (0.0-10.0); %Neutrophils 59.6 % (42.0-75.0); Hematocrit 39.9 % (42.0-52.0); Hemoglobin 14.5 g/dL (14.0-18.0); Mean Corpuscular HGB CONC 36.3 g/dL (32.0-36.0); Mean Corpuscular Hemoglobin 29.3 pg (27.0-31.0); Mean Corpuscular Volume 80.6 fL (78.0-98.0); Mean Platelet Volume 11.4 fL (7.4-10.4); Platelet Count 327 10x3/uL (130-400); RBC Distribution Width 13.1 % (11.5-14.5); Red Blood Cell (RBC) Count 4.95 mill/uL (4.70-6.10)
[2024-08-05 11:51] LABS: Anion Gap 17 mmol/L (10-20); BUN (Urea Nitrogen) 11 mg/dL (8.4-25.7); Calc. Creatinine Clearance 0 mL/min (70-130); Carbon Dioxide 21 mmol/L (22-29); Chloride 105 mmol/L (98-107); Estimated GFR 101; Glucose 97 mg/dL (70-105); Potassium 3.9 mmol/L (3.5-5.1); Prothrombin Time 12.8 sec (12.0-14.7); Sodium 139 mmol/L (136-145)
== END 2024-08-05 09:17 | disposition home or self-care (01) ==
LOC: LABBT 09:16
PROVIDERS: ATTEND Orthopaedic Surgery
DX: Z01.818 Encounter for other preprocedural examination (principal); M17.12 Unilateral primary osteoarthritis, left knee
CPT/HCPCS: 80048; 85025; 85610; 87081; 93005; 93010

== ENCOUNTER 2024-08-11 06:52 | Observation (INO) | payer OTHER, MEDICAID ==
[2024-08-05 09:37] VITALS: BMI 24.3
[2024-08-11] MEDS ORDERED: fentaNYL 50 mcg/mL 1 mL Vial ONE ×3 (07:39→12:02)
[2024-08-11] MEDS ORDERED: Midazolam HCl 2 mg/2 ml Vial ONE ×2 (07:40→07:41)
[2024-08-11] MEDS ORDERED: Bupivacaine PF 0.5% 30 ML VIAL ONE ×2 (07:40→07:41)
[2024-08-11] MEDS ORDERED: Lidocaine 1% (PF) 30 ML VIAL ONE (07:40)
[2024-08-11] MEDS ORDERED: EPINEPHrine 1 MG/ML VIAL ONE (07:41)
[2024-08-11] MEDS ORDERED: Tranexamic Acid 1,000 MG/10 ML VIAL ONE (07:53)
[2024-08-11] MEDS ORDERED: Vancomycin 1 GM/200 ML (FROZEN) BAG ONE (07:53)
[2024-08-11] MEDS ORDERED: Sodium Chloride 0.9% 100 ML ONE (07:53)
[2024-08-11] MEDS ORDERED: CEFAZOLIN 2 GM VIAL ONE (09:10)
[2024-08-11] MEDS ORDERED: PROPOFOL 20 ML ONE (09:18)
[2024-08-11] MEDS ORDERED: fentaNYL PF 100 MCG/2 ML SYRINGE ONE (09:18)
[2024-08-11] MEDS ORDERED: Ondansetron PF 4 MG/2 ML Vial ONE (09:19)
[2024-08-11] MEDS ORDERED: Lidocaine 1% PF 5 ML VIAL ONE (09:19)
[2024-08-11] MEDS ORDERED: Dexamethasone 20 MG/5 ML VIAL ONE (09:19)
[2024-08-11] MEDS ORDERED: Lidocaine 2% 6 ML (Jelly) SYR ONE (09:19)
[2024-08-11] MEDS ORDERED: ePHEDrine Sulfate 50 MG/10 ML VIAL ONE (09:54)
[2024-08-11] MEDS ORDERED: traMADol HCl 50 MG TAB PO PRN ×2 (10:00)
[2024-08-11] MEDS ORDERED: Ondansetron PF 4 MG/2 ML Vial IVP PRN ×2 (10:00→11:55)
[2024-08-11] MEDS ORDERED: Ropivacaine 0.2% 550 ML 550 ML NERVE BLCK SCH (10:00)
[2024-08-11] MEDS ORDERED: Promethazine HCl 25 MG/ML VIAL IM PRN ×2 (10:00→11:55)
[2024-08-11] MEDS ORDERED: fentaNYL 50 mcg/mL 1 mL Vial SLOW IVP PRN (10:00)
[2024-08-11] MEDS ORDERED: Zolpidem Tartrate 5 MG TAB PO PRN ×2 (10:00→11:55)
[2024-08-11] MEDS ORDERED: PHENYLEPHRINE-NS 100 MCG/ML 10 ML SYRINGE ONE (10:17)
[2024-08-11] MEDS ORDERED: Acetaminophen 325 MG TAB PO PRN (11:55)
[2024-08-11] MEDS ORDERED: Ketorolac Tromethamine 30 MG (1 mL) VIAL ONE (12:18)
[2024-08-11] MEDS: Ketorolac Tromethamine 30 MG (1 mL) VIAL IVP SCH (12:20)
[2024-08-11] MEDS: Sodium Chloride 0.9% 1,000 ML IV SCH (12:55)
[2024-08-11] MEDS: HYDROcodone/Acetaminophen 10/325 mg Tablet PO PRN ×2 (14:18→18:33)
[2024-08-11] MEDS: CEFAZOLIN 2 GM in Sodium Chloride 0.9% 100 ML IVPB SCH (17:12)
[2024-08-11] MEDS: Vancomycin (BATCH) 1.5 GM in Premix 1 BAG IVPB SCH (20:37)
[2024-08-11] MEDS: [UNRECOGNIZED DRUG - OTHER] PO SCH (20:38)
[2024-08-11] MEDS: Amlodipine 10 MG TAB PO SCH (20:39)
[2024-08-11] MEDS: Lorazepam 1 MG TAB PO SCH (20:39)
[2024-08-11] MEDS: Ferrous Gluconate 324 MG TAB PO SCH (20:39)
[2024-08-11] MEDS: diphenhydrAMINE 25 MG CAP PO PRN (20:39)
[2024-08-11] MEDS: Aspirin 81 mg Enteric Coated Tablet PO SCH (20:39)
[2024-08-11] MEDS: Senokot S 8.6-50 MG TAB PO SCH (20:39)
[2024-08-12 06:50] LABS: Hematocrit 26.1 % (42.0-52.0); Hemoglobin 9.1 g/dL (14.0-18.0); Mean Corpuscular HGB CONC 34.9 g/dL (32.0-36.0); Mean Corpuscular Hemoglobin 28.8 pg (27.0-31.0); Mean Corpuscular Volume 82.6 fL (78.0-98.0); Mean Platelet Volume 10.9 fL (7.4-10.4); Platelet Count 274 10x3/uL (130-400); RBC Distribution Width 12.7 % (11.5-14.5); Red Blood Cell (RBC) Count 3.16 mill/uL (4.70-6.10)
[2024-08-12 07:54] VITALS: BP 144/76; TEMP 98.5
[2024-08-12] MEDS: Multivitamin W/ Minerals 1 TAB PO SCH (08:42)
[2024-08-12] MEDS: Sulfameth/Trimethoprim DS 800-160mg TAB PO SCH (08:42)
[2024-08-13] MEDS ORDERED: FLU (Fluarix Triv) TS24-25(6MOS UP)/PF 45 MCG/0.5 ML Syringe IM ONE (16:00)
== END 2024-08-12 11:55 | disposition home or self-care (01) ==
LOC: SDC 06:52 → SURG B 14:03 → SDC 17:19 → SURG B 17:19 → SDC 08-12 11:55 → SURG B 08-12 11:55
PROVIDERS: ADMIT Orthopaedic Surgery; ATTEND Orthopaedic Surgery
PROC: 0SRD0JZ Replacement of Left Knee Joint with Synthetic Substitute, Open Approach (ICD-10-PCS; principal; 2024-08-11)
PROC: 3E0T3BZ Introduction of Anesthetic Agent into Peripheral Nerves and Plexi, Percutaneous Approach (ICD-10-PCS; 2024-08-11)
DX: M17.12 Unilateral primary osteoarthritis, left knee (principal); I10 Essential (primary) hypertension; F41.9 Anxiety disorder, unspecified; K21.9 Gastro-esophageal reflux disease without esophagitis; F17.290 Nicotine dependence, other tobacco product, uncomplicated; Z21 Asymptomatic human immunodeficiency virus [HIV] infection status; Z96.651 Presence of right artificial knee joint
CPT/HCPCS: 0055T; 27447; 64448; 36415; 85027; A4306; C1713; C1776; C1889; J0171; J0665; J1100; J1885; J2250; J2405; J2704; J2795; J3010; J3370